=== PATIENT | male | born 1990 | race African-American/Black ===

== ENCOUNTER 2018-07-06 23:26 | Emergency (ER) | payer SELFPAY ==
[~2018-07-06] VITALS: Ht 167.6 cm; Wt 72.0 kg
[2018-07-07] MEDS ORDERED: AMOXICILLIN/POTASSIUM CLAVULANATE 875/125MG TAB PO ONE (01:45)
[2018-07-07] MEDS ORDERED: TETANUS, DIPHTHERIA, PERTUSSIS VAC/PF 0.5ML (>7YR OLD) IM ONE (01:45)
[2018-07-07] MEDS ORDERED: BACITRACIN ZINC OINT UDPKT TOP ONE (01:45)
[2018-07-07] MEDS ORDERED: DOXYCYCLINE HYCLATE 100MG CAPSULE PO ONE (04:00)
[2018-07-07 04:50] VITALS: BP 116/75
== END 2018-07-07 04:52 | disposition home or self-care (01) ==
LOC: ER 23:35
DX: S01.351A Open bite of right ear, initial encounter (principal); S00.411A Abrasion of right ear, initial encounter; F12.10 Cannabis abuse, uncomplicated; Z88.0 Allergy status to penicillin; W54.0XXA Bitten by dog, initial encounter; Y93.89 Activity, other specified; Y92.89 Other specified places as the place of occurrence of the external cause
CPT/HCPCS: 12014; 90471; 90715; 99283

== ENCOUNTER 2018-07-18 09:34 | Emergency (ER) | payer SELFPAY ==
[~2018-07-18] VITALS: Ht 167.6 cm; Wt 76.0 kg
[2018-07-18 09:37] VITALS: BP 102/47
[2018-07-18] MEDS ORDERED: BACITRACIN ZINC OINT UDPKT TOP ONE (14:15)
== END 2018-07-18 15:04 | disposition home or self-care (01) ==
LOC: ER 09:49
DX: Z48.00 Encounter for change or removal of nonsurgical wound dressing (principal)
CPT/HCPCS: 99283

== ENCOUNTER 2023-03-18 14:24 | Emergency (ER) | payer SELFPAY ==
[~2023-03-18] VITALS: Ht 165.1 cm; Wt 77.0 kg
[2023-03-18 14:55] VITALS: O2SAT 98
[2023-03-18] MEDS ORDERED: TETANUS, DIPHTHERIA, PERTUSSIS VAC/PF 0.5ML (>10YR OLD) IM ONE (15:30)
[2023-03-18] MEDS ORDERED: DOXY100C5 MT (16:10)
[2023-03-18 16:32] VITALS: BP 127/86; PULSE 88; RESP 18; TEMP 98.7
== END 2023-03-18 16:34 | disposition home or self-care (01) ==
LOC: ER 14:24
DX: L03.012 Cellulitis of left finger (principal); F12.10 Cannabis abuse, uncomplicated
CPT/HCPCS: 73140; 90471; 90715; 99283